=== PATIENT | female | born 1970 | race Caucasian/White ===

== ENCOUNTER 2020-07-26 19:20 | Emergency (ER) | payer OTHER ==
[2020-07-26 19:56] VITALS: BP 128/70; PULSE 78; TEMP 99; BMI 33.4
[2020-07-26] MEDS ORDERED: ONDANSETRON 4 MG/2 ML VIAL IVPB ONE (20:05)
[2020-07-26] MEDS ORDERED: ACETAMINOPHEN 1000 MG/100 ML VIAL (NON FORMULARY) IVPB ONE (20:05)
[2020-07-26] MEDS ORDERED: SODIUM CHLORIDE 1,000 ML ONE (20:05)
--- NOTE | 2020-07-26 20:05 | PDOC ---
History of Present Illness - General Chief Complaint: Nausea/Vomiting Stated Complaint: N/V, WEANING OFF PAXIL, STARTED CONTRAVE-R Time Seen by Provider: 07/26/20 19:57 History Source: Patient Exam Limitations: No Limitations - History of Present Illness Initial Comments: 07/26/20 20:06 This is a 50-year-old female who comes in complaining of nausea vomiting but no abdominal pain x2 days. Patient is attributing it to stopping Paxil and taking a different medication. Patient said she has now stopped all medication but continues to have some nausea and vomiting. Patient denies any fevers diarrhea. Patient denies any exposure to COVID. Patient had a COVID test that was done approximately 1 month ago and negative. Patient denies history of similar symptoms in the past. Patient took ibuprofen prior to coming in for a headache and body aches. Allergies: as per nursing notes Past Medical History: none Social history: Lives with family. No smoking. No alcohol. No illicit drugs. Surgical history: None General: No fevers or chills, no weakness, no weight loss HEENT: No change in vision. No sore throat,. No ear pain CardioVascular: no chest discomfort. No shortness of breath Respiratory:No cough, or wheezing. Gastrointestinal: + nausea, + vomiting, no diarrhea or constipation, No rectal bleeding Genitourinary: No dysuria, hematuria, or frequency Musculoskeletal: No joint or muscle pain or swelling Neurologic: No headache, vertigo, dizziness or loss of consciousness Psychiatric: nor depression Skin: No rashes or easy bruising Endocrine: no increased thirst or abnormal weight change Allergic: no skin or latex allergy All other systems reviewed and normal Exam: General: Well-nourished well-developed individual, no acute distress HEENT: Throat: Normal, tonsils normal, no erythema or exudate Neck: Supple, no meningeal signs, no lymphadenopathy Eyes::Pupils equal reactive and round, extraocular motion intact Chest: Nontender to palpation Cardiac: S1-S2 normal, regular rate and rhythm, no murmurs rubs or gallops Respiratory: Lungs clear to auscultation bilateral Abdomen: Soft, nondistended, normal bowel sounds, there is no tenderness on palpation diffusely Extremities: Warm, dry, no cyanosis, clubbing, or edema Skin: No rashes Neuro: Alert and oriented x3, CN II - XII intact, nonfocal exam with normal strength, normal sensation, normal reflexes, normal gait, Psych: Normal mood and affect Plan: This a 50-year-old female with headache body aches nausea vomiting but no fevers. Will do basic work-up and give patient antiemetics fluids and Tylenol. 21:52 Patient's work-up was unremarkable including a normal white count and no evidence of dehydration. Patient given Zofran, Toradol, Tylenol and IV fluids with improvement of symptoms. Patient's had no further vomiting. Prescription for Zofran was sent to the pharmacy. Past History - Medical History Allergies/Adverse Reactions: Allergies Allergy/AdvReac Type Severity Reaction Status Date / Time Penicillins Allergy Unknown Verified 07/26/20 19:40 Home Medications: Ambulatory Orders Albuterol Sulfate Inhaler - [Ventolin Hfa Inhaler -] 1 puff IH PRN PRN 07/26/20 Fluticasone/Vilanterol [Breo Ellipta 200-25 Mcg INH] 1 each IH DAILY 07/26/20 Lansoprazole [Prevacid] 30 mg PO DAILY 07/26/20 Naltrexone HCl/Bupropion HCl [Contrave ER 8-90 mg Tablet] 1 each PO DAILY 07/26/20 Ondansetron [Zofran *Odt*] 4 mg SL TID #12 od.tablet 07/26/20 Paroxetine HCl [Paxil] 10 mg PO Q48H 07/26/20 Asthma: Yes COPD: No GI Disorders: Yes (GERD) Other medical history: MENOPAUSAL - Surgical History Appendectomy: Yes (2007) - Reproductive History Is Patient Now?: No Tubal Ligation: Yes - Psycho-Social/Smoking History Smoking History: Former smoker Have you smoked in the past 12 months: No If you are a former smoker, when did you quit?: 2002 Information on smoking cessation initiated: No - Substance Abuse Hx (Audit-C & DAST Scrn) How often the patient has a drink containing alcohol: Monthly or less How often the patient has six or more drinks on one occasion: Never Score: In Men: 4 or > Positive; In Women: 3 or > Positive: 1 Screen Result (Pos requires Nsg. Audit-10AR): Negative In the last yr the pt used illegal drug/Rx for NonMed reason: No Score: Yes response is considered Positive: 0 Screen Result (Positive result requires Nsg. DAST-10): Negative *Physical Exam - Vital Signs Last Vital Signs Temp Pulse Resp BP Pulse Ox 99.0 F 78 15 128/70 99 07/26/20 19:39 07/26/20 19:39 07/26/20 19:39 07/26/20 19:39 07/26/20 19:39 ED Treatment Course - LABORATORY CBC & Chemistry Diagram: 07/26/20 20:45 07/26/20 20:22 Discharge - Discharge Information Problems reviewed: Yes Clinical Impression/Diagnosis: Headache Nausea & vomiting Qualifiers: Vomiting type: unspecified Vomiting Intractability: non-intractable Qualified Code(s): R11.2 - Nausea with vomiting, unspecified Condition: Good Disposition: HOME - Admission No - Follow up/Referral Referrals: Eva Rosales MD [Primary Care Provider] - - Patient Discharge Instructions Patient Printed Discharge Instructions: DI for Vomiting -- Adult Additional Instructions: For further nausea I sent prescription to your pharmacy for Zofran you can take 1 tablet as often as 3 times a day as needed for nausea. Tylenol or Motrin as needed for the headache. Return to the emergency department immediately with ANY new, persistent or worsening symptoms. Continue any medications as previously prescribed by your physician. You should follow up with your primary doctor as soon as possible regarding today's emergency department visit. . Please make sure your doctor reviews the results of your emergency evaluation. Thank you for coming to the Emergency Department today for your care. It was a pleasure to see you today. Please note that your evaluation is INCOMPLETE until you follow-up with your doctor. - Post Discharge Activity
[2020-07-26] MEDS ORDERED: ONDANSETRON 4 MG/2 ML VIAL ONE (20:32)
[2020-07-26] MEDS ORDERED: ACETAMINOPHEN INJECTION 100 ML IVPB ONE (20:32)
[2020-07-26 21:01] LABS: BASO % 0.4 % (0-2.0); EOS % 1.7 % (0-4.5); HEMATOCRIT 30.9 % (32.4-45.2); HEMOGLOBIN 10.6 GM/dl (10.7-15.3); LYMPH % 21.1 % (8-40); MCH 32.8 pg (25.7-33.7); MCHC 34.2 g/dl (32.0-36.0); MEAN CELL VOLUME 95.9 fl (80-96); MEAN PLT VOLUME 7.7 fl (7.5-11.1); MONO % 6.2 % (3.8-10.2); NEUT % 70.6 % (42.8-82.8); PLATELET COUNT 369 K/MM3 (134-434); RBC 3.22 M/mm3 (3.60-5.2); RDW 12.7 % (11.6-15.6); WHITE BLOOD COUNT 5.9 K/mm3 (4.0-10.8)
[2020-07-26 21:13] LABS: ALBUMIN 3.8 g/dl (3.4-5.0); BILIRUBIN,TOTAL 0.4 mg/dl (0.2-1); CALCIUM 8.8 mg/dl (8.5-10); CREATININE 0.8 mg/dl (0.55-1.3); POTASSIUM 3.4 mmol/L (3.5-5.1); TOT PROT 6.7 g/dl (6.4-8.2)
[2020-07-26] MEDS ORDERED: KETOROLAC TROMETHAMINE 30 MG/1 ML VIAL IVPUSH ONE (21:42)
[2020-07-26] MEDS ORDERED: KETOROLAC TROMETHAMINE 30 MG/1 ML VIAL ONE (21:45)
== END 2020-07-26 22:12 | disposition home or self-care (01) ==
LOC: FER 19:20
PROC: 3E0333Z Introduction of Anti-inflammatory into Peripheral Vein, Percutaneous Approach (ICD-10-PCS; principal; 2020-07-26)
PROC: 3E033GC Introduction of Other Therapeutic Substance into Peripheral Vein, Percutaneous Approach (ICD-10-PCS; 2020-07-26)
PROC: 3E0337Z Introduction of Electrolytic and Water Balance Substance into Peripheral Vein, Percutaneous Approach (ICD-10-PCS; 2020-07-26)
DX: R11.2 Nausea with vomiting, unspecified (principal)
CPT/HCPCS: 36415; 80053; 85025; 99284-25; J0131

== ENCOUNTER 2022-02-06 12:30 | Emergency (ER) | payer OTHER ==
[2022-02-06] MEDS ORDERED: ACETAMINOPHEN 325 MG TABLET (FP) PO ONE (12:54)
[2022-02-06 12:59] VITALS: BP 150/94; PULSE 92; TEMP 98.8; BMI 31.9
[2022-02-06] MEDS ORDERED: ACETAMINOPHEN 325 MG TABLET (FP) ONE (13:08)
[2022-02-07 18:08] LABS: SARS-CoV-2 NAA Not Detected (Not Detected)
== END 2022-02-06 13:22 | disposition home or self-care (01) ==
LOC: FER 12:30
DX: R05.1 Acute cough (principal); R09.81 Nasal congestion; J06.9 Acute upper respiratory infection, unspecified
CPT/HCPCS: 87804; 99283-25; C9803-CS; U0003; U0005

== ENCOUNTER 2022-11-15 10:39 | Emergency (ER) | payer OTHER ==
[2022-11-15 10:45] VITALS: BP 127/88; PULSE 92; RESP 20; TEMP 98; BMI 27.6
[2022-11-15] MEDS ORDERED: ACETAMINOPHEN 1000 MG/100 ML BAG IVPB ONE (10:57)
[2022-11-15] MEDS ORDERED: SODIUM CHLORIDE 0.9% 500 ML INFUS.BAG IV ONE (10:57)
[2022-11-15] MEDS ORDERED: METOCLOPRAMIDE HCL INJECTION 10 MG/2 ML VIAL IVPB ONE (10:58)
[2022-11-15] MEDS ORDERED: ACETAMINOPHEN INJECTION 100 ML IVPB ONE (11:03)
[2022-11-15] MEDS ORDERED: METOCLOPRAMIDE HCL INJECTION 10 MG/2 ML VIAL ONE (11:03)
== END 2022-11-15 13:02 | disposition home or self-care (01) ==
LOC: FER 10:39 → SUPCPDRO 10:39 → FER 13:02
PROC: 3E033GC Introduction of Other Therapeutic Substance into Peripheral Vein, Percutaneous Approach (ICD-10-PCS; principal; 2022-11-15)
DX: R19.7 Diarrhea, unspecified (principal)
CPT/HCPCS: 0241U-QW; 76705-TC; 99284-25